=== PATIENT | male | born 1965 ===

== ENCOUNTER 2020-04-25 16:47 | Emergency (ER) | payer OTHER ==
--- NOTE | 2020-04-25 17:19 | EDM.PDOC ---
ED HPI GENERAL MEDICAL PROBLEM - General Chief Complaint: CPR in Progress Stated Complaint: EMS, CPR Time Seen by Provider: 04/25/20 16:58 Source of Information: Reports: EMS History Limitations: Reports: Other (CPR) - History of Present Illness INITIAL COMMENTS - FREE TEXT/NARRATIVE: 55M unknown PMHx presents BIBEMS for cardiac arrest. Unknown downtime prior to their arrival. Was found pulseless in Vtach. Given 3x epi and defib x2 [employer]ER. Arrives w/ CPR in progress. ED ROS GENERAL - Review of Systems Review Of Systems: Unable To Obtain (CPR) Reason Not Obtained: CPR ED EXAM, CPR - Physical Exam Exam: See Below Limited By: Other (CPR) General Appearance: Other (CPR in progress, GCS3T, ashen skin) Eye Exam: Bilateral Eye: Other (fixed and dilated b/l, equal ) Ears: Normal External Exam Nose: Normal Inspection Throat/Mouth: Other (Saeid tube in place, small amount of intraoral blood) Head: Atraumatic, Normocephalic Respiratory Chest: Other (b/l breath sounds w/ bagging) Cardiovascular: Other (pulseless; carotid and femoral pulses palpable while CPR is in progress) GI/Abdominal Exam: Soft, Distended Extremities: Normal Inspection Skin Exam: Warm, Dry, Other (ashen) ED CPR PROCEDURES - Endotracheal Intubation Time of Intubation: 16:45 ET Intubation Indication: Cardiac Arrest Preparation: Suction, Balloon Tested, BVM Set Up, Difficult Airway Equip Airway Assessment: Obese, Large Tongue Pre-Oxygenation: Assisted with BVM Placement: Orotracheal Cords Visualized: Yes ETT Size In mm: 7.5 Number of Attempts: 1 Confirmed By: CO2 Indicator, Bilateral Breath Sounds Tube Secured By: By RT Course - Re-Assessments/Exams Free Text/Narrative Re-Assessment/Exam: 04/25/20 17:17 CPR was continued after patient arrived with multiple rounds of epinephrine and 1 amp of bicarb given. Patient was intubated. After intubation, good capnography was identified. CPR was continued. Patient remained in asystole throughout entire ED stay. Bedside POCUS was performed and patient was noted to be in cardiac standstill. TOD was called. Please see code sheet for times/doses/etc. Family arrived after TOD was called. Departure - Departure Time of Disposition: 17:19 Disposition: 20 Preliminary Cause of *Q: Cardiac Arrest Clinical Impression: Cardiac arrest - Discharge Information Referrals: PCP,None [Primary Care Provider] -
[2020-04-25] MEDS ORDERED: EPINEPHrine 1 MG/1 ML Amp IVPUSH ONE ×2 (19:09→19:10)
[2020-04-25] MEDS ORDERED: Sodium Bicarbonate 8.4% 50 MEQ/50 ML Syringe IVPUSH ONE (19:10)
--- NOTE | 2020-04-26 06:31 | PCM.SN.2 ---
- Free Text/Narrative Note: Called for code blue. patient already intubated. cpr in progress. tod called per ed note.
== END 2020-04-26 09:28 | disposition expired ==
LOC: MW.ED 16:47
DX: I46.9 Cardiac arrest, cause unspecified (principal)
CPT/HCPCS: 31500; 36680; 51702; 92950; 96374; 96375; 99285; J0171